=== PATIENT | female | born 1955 | race Hispanic/Latino ===

== ENCOUNTER → 2019-04-21 | Outpatient (CLI) | payer MEDICARE ==
[~2019-04-21] MED LIST: [UNRECOGNIZED DRUG - REMARK]
--- NOTE | 2019-04-21 14:35 | Diagnostic Imaging Report ---
Exam: Right Knee Series. History: Osteoarthritis Comparison: None Findings: 4 views of the right knee demonstrate postoperative findings of right total knee replacement. Alignment is anatomic. No acute fracture or evidence of hardware failure. Suprapatellar joint effusion. Impression: Anatomic alignment status post right total knee replacement. Suprapatellar joint effusion. Signed by: Sumit Sheth MD on 04/21/2019 2:32 PM
--- NOTE | 2019-04-21 17:20 | Diagnostic Imaging Report ---
Exam: Bone mineral density study. History: Osteopenia. Comparison: None Discussion: Evaluation of the left hip, and lumbar spine was performed utilizing DEXA Hologic bone densitometer. The study is technically adequate. Left hip total bone mineral density: 1.074gm/cm2, T-score is 0.8, Z-score is 1.9. Left hip femoral neck bone mineral density: 0.920gm/cm2, T-score is 0.4, Z-score is 1.8. Lumbar spine total bone mineral density:0.934gm/cm2, T-score is-1.0, Z-score is 0.6. Impression: 1. Normal bone mineral density of the left hip, fracture risk is not increased. 2. Normal bone mineral density of the lumbar spine, fracture risk is not increased. Least significant change (LSC) for bone mineral density as provided by motel food service supervisor is 0.023 g/cm2 for lumbar spine and 0.027 g/cm2 for total hip. 10 -year fracture risk per WHO Fracture Risk Assessment Tool (FRAX) for: Not reported because patient treated for osteoporosis. All T-scores at or above -1.0 The patient's fracture risk is compared to an age-matched control. Medical evaluation for secondary causes of low bone bone mineral density may be appropriate. Correlate clinically for the necessity and timing of the next bone mineral density study. Signed by: Dr. Rolando Fernando M.D. on 04/21/2019 5:16 PM
--- NOTE | 2019-05-11 08:20 | Diagnostic Imaging Report ---
#[id number] - MGSCRBIL #BILATERAL DIGITAL SCREENING MAMMOGRAM WITH CAD: 04/21/2019 CLINICAL: Routine screening. Comparison is made to exams dated: 02/07/2018 mammogram, 01/27/2018 mammogram and 12/26/2016 mammogram - [facility]. There are scattered fibroglandular elements in both breasts. Current study was also evaluated with a Computer Aided Detection (CAD) system. There are benign vascular calcifications in both breasts. No significant masses, calcifications, or other findings are seen in either breast. There has been no significant interval change. IMPRESSION: BENIGN There is no mammographic evidence of malignancy. A 1 year screening mammogram is recommended. The patient will be notified by letter of the results. OMAR SANCHEZ M.D. mc/:05/08/2019 10:40:38 [place]: Tiffani STEPHEN)(Janey), [facility] letter sent: Normal Exam Mammogram BI-RADS: 2 Benign
== END ==
LOC: MAMMO 12:36
PROVIDERS: ATTEND Internal Medicine
DX: Z12.31 Encounter for screening mammogram for malignant neoplasm of breast (principal); Z13.820 Encounter for screening for osteoporosis; M17.11 Unilateral primary osteoarthritis, right knee
CPT/HCPCS: 77067; 77080

== ENCOUNTER → 2020-10-24 | Outpatient (CLI) | payer MEDICARE | LOC: CT 09:36 | PROVIDERS: ATTEND Internal Medicine | DX: Z12.31 Encounter for screening mammogram for malignant neoplasm of breast (principal); R51.9 Headache, unspecified | CPT/HCPCS: 70450; 77067 ==

== ENCOUNTER → 2020-11-10 | Outpatient (CLI) | payer MEDICARE | LOC: MRI 10:00 | PROVIDERS: ATTEND Internal Medicine | DX: M47.16 Other spondylosis with myelopathy, lumbar region (principal) | CPT/HCPCS: 72148 ==

== ENCOUNTER → 2021-08-14 | Outpatient (CLI) | payer MEDICARE | LOC: RAD 08:02 | PROVIDERS: ATTEND Internal Medicine | DX: M19.011 Primary osteoarthritis, right shoulder (principal); M19.012 Primary osteoarthritis, left shoulder ==

== ENCOUNTER → 2021-12-19 | Outpatient (CLI) | payer MEDICARE, OTHER | LOC: MAMMO 10:34 | PROVIDERS: ATTEND Internal Medicine | DX: Z12.31 Encounter for screening mammogram for malignant neoplasm of breast (principal) | CPT/HCPCS: 77067 ==

== ENCOUNTER → 2022-06-12 | Outpatient (CLI) | payer MEDICARE, OTHER | LOC: DX 09:04 | PROVIDERS: ATTEND Internal Medicine | DX: Z13.820 Encounter for screening for osteoporosis (principal); S22.42XK Multiple fractures of ribs, left side, subsequent encounter for fracture with nonunion | CPT/HCPCS: 71101; 77080 ==

== ENCOUNTER → 2022-12-27 | Outpatient (CLI) | payer MEDICARE, OTHER | LOC: MAMMO 14:46 | PROVIDERS: ATTEND Internal Medicine | DX: N63.20 Unspecified lump in the left breast, unspecified quadrant (principal); R07.89 Other chest pain | CPT/HCPCS: 71250; 77066 ==

== ENCOUNTER → 2023-01-11 | Outpatient (CLI) | payer MEDICARE, OTHER | LOC: RAD 07:18 | PROVIDERS: ATTEND Internal Medicine | DX: M25.512 Pain in left shoulder (principal) ==

== ENCOUNTER → 2024-02-06 | Outpatient (REF) | payer MEDICARE, OTHER | LOC: MAMMO 09:13 | PROVIDERS: ATTEND Internal Medicine | DX: Z12.31 Encounter for screening mammogram for malignant neoplasm of breast (principal) | CPT/HCPCS: 77067 ==

== ENCOUNTER → 2024-06-26 | Outpatient (REF) | payer MEDICARE | LOC: RAD 11:50 | PROVIDERS: ATTEND Internal Medicine | DX: M47.16 Other spondylosis with myelopathy, lumbar region (principal) | CPT/HCPCS: 72110 ==

== ENCOUNTER → 2025-03-25 | Outpatient (REF) | payer MEDICARE, OTHER | LOC: MAMMO 10:24 | PROVIDERS: ATTEND Internal Medicine | DX: Z12.31 Encounter for screening mammogram for malignant neoplasm of breast (principal) | CPT/HCPCS: 77067 ==